=== PATIENT | female | born 1975 | race Caucasian/White ===

== ENCOUNTER → 2019-07-06 07:17 | Outpatient (CLI) | payer OTHER, SELFPAY ==
--- NOTE | ~2019-07-06 | MM_ITS ---
EXAMINATION: MM screening [facility] BI w ann HISTORY: Screening mammogram TECHNIQUE: Craniocaudal and mediolateral oblique 3-D tomosynthesis images were obtained and synthetic 2-D images were generated. CAD analysis was submitted and interpreted. COMPARISON: 01/28/2018 BREAST PARENCHYMAL COMPOSITION: The breasts are almost entirely fatty. FINDINGS: There is no evidence of suspicious mass, calcification, or architectural distortion to sugg est malignancy in either breast. There has been no suspicious interval change. IMPRESSION: 1. No mammographic evidence of malignancy. 2. Recommend routine screening mammography in one year. BI-RADS Category 1: Negative Reviewed, dictated and finalized at location A.
== END ==
PROVIDERS: Visit Provider Obstetrics & Gynecology
DX: Z12.31 Encounter for screening mammogram for malignant neoplasm of breast (principal)
CPT/HCPCS: 77063; 77067

== ENCOUNTER 2019-10-13 09:01 | Outpatient (CLI) | payer OTHER, SELFPAY ==
--- NOTE | ~2019-10-13 | US_ITS ---
EXAMINATION: US right upper quadrant DATE: 10/13/2019 11:15 INDICATION: Nausea. Right upper quadrant abdominal pain. TECHNIQUE: Multiple grayscale and Doppler ultrasound images of the abdomen were obtained. COMPARISON: None FINDINGS: The visualized portions of the head and body of the pancreas are normal. The liver is jun l without focal lesion. There is normal flow in main portal vein. The gallbladder is normal in size a nd contains sludge. No gallstones or gallbladder wall thickening. There was no sonographic Pearson sig n. The common duct is normal and measures 6 mm. IMPRESSION: 1. Gallbladder sludge. No evidence of acute cholecystitis. Reviewed, dictated and finalized at location A.
== END 2019-10-13 09:02 | disposition home or self-care (01) ==
LOC: CHSIMG 09:04
PROVIDERS: PCP Internal Medicine; Visit Provider Internal Medicine
DX: R10.13 Epigastric pain (principal); K21.9 Gastro-esophageal reflux disease without esophagitis
CPT/HCPCS: 76705

== ENCOUNTER 2019-10-20 13:38 | Outpatient (CLI) | payer OTHER, SELFPAY ==
--- NOTE | ~2019-10-20 | NM_ITS ---
EXAMINATION: NM hepatobiliary w pharm EXAM DATE: 10/20/2019 16:06 INDICATION: Right upper quadrant pain. TECHNIQUE: 5.2 mCi Tc-99m mebrofenin (Choletec) was administered intravenously. Scintigraphic images of the abdomen were obtained for one hour. At the 1 hour time point, 2.7 mcg sincalide (Kinevac) was administered by slow intravenous infusion, and imaging was continued for 30 minutes. Gallbladder eje ction fraction was calculated by the technologist. There is no prior study for comparison. FINDINGS: There is normal clearance of radiotracer from the blood pool. There is homogeneous tracer u ptake by the liver. Activity identified and small bowel on the 15 minute image, and in the gallbladde r and the 45 minute image. The gallbladder ejection fraction (GBEF) is 0 % (most patients with gallbl adder dysfunction have GBEF < 35%, but there is overlap with the normal range of 10-90%). IMPRESSION: Gallbladder ejection fraction 0%, consistent with gallbladder dysfunction and/or chronic cholecystitis. Reviewed, dictated and finalized at location B. IMPRESSION: Gallbladder ejection fraction 0%, consistent with gallbladder dysf unction and/or chronic cholecystitis.
== END 2019-10-20 13:39 | disposition home or self-care (01) ==
LOC: CHSIMG 13:39
PROVIDERS: PCP Internal Medicine; Visit Provider Internal Medicine
DX: R10.11 Right upper quadrant pain (principal)
CPT/HCPCS: 78227; A9537; J2805

== ENCOUNTER → 2020-08-07 16:53 | Outpatient (CLI) | payer OTHER, SELFPAY ==
--- NOTE | ~2020-08-07 | MM_ITS ---
EXAMINATION: MM screening sivan BI w ann HISTORY: Screening TECHNIQUE: Craniocaudal and mediolateral oblique 3-D tomosynthesis images were obtained and synthetic 2-D images were generated. CAD analysis was submitted and interpreted. COMPARISON: Comparison to multiple prior studies sequentially, with oldest reviewed study dated 08/2017. BREAST PARENCHYMAL COMPOSITION: The breasts are almost entirely fatty. FINDINGS: There is no evidence of suspicious mass, calcification, or architectural distortion to sugg est malignancy in either breast. There has been no suspicious interval change. IMPRESSION: 1. No mammographic evidence of malignancy. 2. Recommend routine screening mammography in one year. BI-RADS Category 1: Negative Reviewed, dictated and finalized at location A.
== END ==
PROVIDERS: Visit Provider Obstetrics & Gynecology
DX: Z12.31 Encounter for screening mammogram for malignant neoplasm of breast (principal)
CPT/HCPCS: 77063; 77067

== ENCOUNTER → 2022-04-01 15:02 | Outpatient (CLI) | payer OTHER, SELFPAY ==
--- NOTE | ~2022-04-01 | MM_ITS ---
EXAMINATION: MM screening [facility] BI w ann HISTORY: Screening mammogram TECHNIQUE: Craniocaudal and mediolateral oblique 3-D tomosynthesis images were obtained and synthetic 2-D images were generated. CAD analysis was submitted and interpreted. COMPARISON: 08/07/2020, 07/06/2019, 01/28/2018 BREAST PARENCHYMAL COMPOSITION: The breasts are almost entirely fatty. FINDINGS: No suspicious mass, calcification, or architectural distortion are identified in either stacy ast to suggest malignancy. There has been no suspicious interval change. IMPRESSION: 1. No mammographic evidence of malignancy. 2. Recommend routine screening mammography in one year. BI-RADS Category 1: Negative Reviewed, dictated and finalized at location A. ADMINISTRATOR
== END ==
PROVIDERS: PCP Internal Medicine; Visit Provider Obstetrics & Gynecology
DX: Z12.31 Encounter for screening mammogram for malignant neoplasm of breast (principal)
CPT/HCPCS: 77063; 77067

== ENCOUNTER 2022-06-30 12:55 | Emergency (ER) | payer OTHER, SELFPAY ==
[2022-06-30 13:18] VITALS: BP 114/52; PULSE 69; RESP 16; TEMP 36.7; O2SAT 99
--- NOTE | 2022-06-30 13:31 | ED.FEMALEGU ---
HPI - Female Genitourinary General Chief complaint: Urogenital-Female Stated complaint: uti Time Seen by Provider: 06/30/22 13:25 Source: patient Mode of arrival: ambulatory Limitations: no limitations History of Present Illness HPI Narrative: Tri is a 46-year-old female patient presenting to the clinic today with complaints of burning with urination and discomfort after urination x2 weeks. She reports she has been drinking lot of fluids and trying to flush out her kidneys. She just began her menses today. She denies any fever or chills. She denies any abdominal pain or flank pain Related Data Home Medications Medication Instructions Recorded Confirmed pantoprazole 20 mg tablet,delayed mg PO 06/30/22 release Allergies Allergy/AdvReac Type Severity Reaction Status Date / Time No Known Allergies Allergy Verified 06/30/22 13:13 Review of Systems Review of Systems: Pertinent positives per HPI. Patient denies any fever, chills, rash, headache, visual changes, dizziness, cough, runny nose, sore throat, shortness of breath, chest pain, palpitations, nausea, vomiting, diarrhea, constipation, abdominal pain. PMFSH Family History Family History (System 07/18/21 @ 12:39 by Edith Palomino) Grandparent Family history of obesity Cerebrovascular accident Family history of Alzheimer's disease Family history of malignant neoplasm of breast Family history of hearing loss Family history of throat cancer Mother Family history of obesity Patient's mother is in good health Father Patient's father is in good health Family history of allergic disorder Hypertension Malignant neoplasm of prostate Sibling Patient's brother is in good health Social History Social History (System 07/18/21 @ 12:39 by Edith Palomino) Smoking status: Former smoker Smoking end date: 04/26/05 Alcohol intake: current Comments At the time of my signature, I reviewed and agree with the nursing past medical, surgical, social, and family history. There is no relevant family history pertinent to the patient complaint. Course Course Emergency Course: Portions of this record may have been created with voice recognition software. Level of Care: Express Care Visit Vital Signs Vital signs: Vital Signs Temperature 36.7 C 06/30/22 13:18 Pulse Rate 69 06/30/22 13:18 Respiratory Rate 16 06/30/22 13:18 Blood Pressure 114/52 L 06/30/22 13:18 Pulse Oximetry 99 06/30/22 13:18 Oxygen Delivery Room Air 06/30/22 13:18 Temperature 36.7 C 06/30/22 13:18 Pulse Rate 69 06/30/22 13:18 Respiratory Rate 16 06/30/22 13:18 Blood Pressure 114/52 L 06/30/22 13:18 Pulse Oximetry 99 06/30/22 13:18 Oxygen Delivery Room Air 06/30/22 13:18 Vital signs reviewed MDM - Female Genitourinary MDM Narrative Medical decision making narrative: At the time of visit patient is resting comfortably on the exam table. Urinalysis only shows 1+ blood which is likely due to her menses. Will send for culture. Supportive measures were discussed with the patient and she voiced understanding of discharge instructions. Will send in prescription for some Pyridium to help with her symptoms until culture comes back. Differential Diagnosis Differential diagnosis: Likely urinary tract infection, cystitis and other (Interstitial cystitis, overactive bladder) Lab Data Labs: Urine Glucose Negative Reference Range: Negative Urine Bilirubin Negative Reference Range: Negative Urine Ketone Negative Reference Range: Negative Urine Specific [place] 1.030 Reference Range:1.001-1.035 Urine Blood 1+
== END 2022-06-30 13:36 | disposition home or self-care (01) ==
PROVIDERS: Emergency Provider Nurse Practitioner Family; PCP Internal Medicine
DX: R30.0 Dysuria (principal); Z87.891 Personal history of nicotine dependence
CPT/HCPCS: 81003; 87086; 99213; G0463

== ENCOUNTER 2023-08-16 07:23 | Outpatient (CLI) | payer OTHER, SELFPAY ==
--- NOTE | ~2023-08-16 | MM_ITS ---
EXAMINATION: MM screening sivan BI w ann HISTORY: Screening mammogram TECHNIQUE: Craniocaudal and mediolateral oblique 3-D tomosynthesis images were obtained and synthetic 2-D images were generated. CAD analysis was submitted and interpreted. COMPARISON: 04/01/2022, 08/07/2020, 07/06/2019 bilateral screening mammogram examinations BREAST PARENCHYMAL COMPOSITION: The breasts are almost entirely fatty. FINDINGS: There is no evidence of suspicious mass, calcification, or architectural distortion to sugg est malignancy in either breast. There has been no suspicious interval change. IMPRESSION: 1. No mammographic evidence of malignancy. 2. Recommend routine screening mammography in one year. BI-RADS Category 1: Negative Reviewed, dictated and finalized at location A.
== END 2023-08-16 07:24 ==
PROVIDERS: PCP Obstetrics & Gynecology; Visit Provider Obstetrics & Gynecology
DX: Z12.31 Encounter for screening mammogram for malignant neoplasm of breast (principal)
CPT/HCPCS: 77063; 77067

== ENCOUNTER 2023-08-20 07:47 | Outpatient (CLI) | payer OTHER, SELFPAY ==
--- NOTE | ~2023-08-20 | MR_ITS ---
MRI of the left ankle Clinical history: Achilles tendinitis Technique: Coronal proton-density and proton-density fat-sat images, axial proton-density and proton- density fat-sat images, and sagittal proton-density and proton-density fat-sat images were acquired. Findings: Syndesmotic ligaments are intact. Anterior and posterior talofibular ligaments, and calcane ofibular ligament are intact. Deltoid ligament is intact. Medial flexor tendons, peroneal tendons, and anterior extensor tendons are intact. There is moderate to advanced tendinosis of the distal Achilles tendon, with probable moderate grade partial thickness tearing at the very distal Achilles tendon near its insertion. At the area of tear, there is involvem ent of approximately 60% of the total tendon thickness. There is no osteochondral lesion of the talar dome. Bone marrow signals are intact. There is mild deg enerative change of the navicular cuneiform articulations. There is moderate to advanced degenerative change focally at the dorsal aspect of the talonavicular joint. No significant joint effusion. Plantar fascia intact. There is nonspecific subcutaneous soft tissue edema about the ankle. Impression: Tendinosis of the very distal Achilles tendon with moderate grade partial thickness tear near the dion caneal insertion, as detailed above. Nonspecific subcutaneous soft tissue edema of the ankle. Degenerative changes at the naviculocuneiform and talonavicular joints, as above. Reviewed, dictated and finalized at [facility]. Impression: Tendinosis of the very distal Achilles tendon with moderate grade partial thick ness tear near the calcaneal insertion, as detailed above. Nonspecific subcutaneous soft tissue edema of the ankle. Degenerative changes at the naviculocuneiform and talonavicular joints, as abov e.
== END 2023-08-20 07:48 ==
LOC: MICIMG 07:48
PROVIDERS: PCP Podiatrist Foot & Ankle Surgery; Visit Provider Podiatrist Foot & Ankle Surgery
DX: M76.62 Achilles tendinitis, left leg (principal); S86.012A Strain of left Achilles tendon, initial encounter; M70.972 Unspecified soft tissue disorder related to use, overuse and pressure, left ankle and foot; M17.12 Unilateral primary osteoarthritis, left knee; X58.XXXA Exposure to other specified factors, initial encounter
CPT/HCPCS: 73721

== ENCOUNTER 2024-10-09 12:42 | Outpatient (CLI) | payer OTHER, SELFPAY ==
--- NOTE | ~2024-10-09 | MM_ITS ---
EXAMINATION: MM screening [facility] BI w ann HISTORY: Screening TECHNIQUE: Craniocaudal and mediolateral oblique 3-D tomosynthesis images were obtained and synthetic 2-D images were generated. CAD analysis was submitted and interpreted. COMPARISON: Comparison to multiple prior studies sequentially, with oldest reviewed study dated 08/2017. BREAST PARENCHYMAL COMPOSITION: Not Dense: The breasts are almost entirely fatty. FINDINGS: There is no evidence of suspicious mass, calcification, or architectural distortion to sugg est malignancy in either breast. There has been no suspicious interval change. IMPRESSION: 1. No mammographic evidence of malignancy. 2. Recommend routine screening mammography in one year. BI-RADS Category 1: Negative Reviewed, dictated and finalized at location A.
== END 2024-10-09 12:43 | disposition home or self-care (01) ==
LOC: MICIMG 12:43
PROVIDERS: PCP Obstetrics & Gynecology; Visit Provider Obstetrics & Gynecology
DX: Z12.31 Encounter for screening mammogram for malignant neoplasm of breast (principal)
CPT/HCPCS: 77063; 77067